=== PATIENT | male | born 1970 | race Hispanic/Latino ===

== ENCOUNTER 2023-04-30 02:39 | Inpatient (IN) | payer BC ==
[2023-04-30] VITALS (52 sets, daily range): BP systolic 76–156; BP diastolic 42–116; PULSE 47–97; RESP 7–70; O2SAT 97–100
[2023-04-30] MEDS ORDERED: PROPOFOL 1000 MG/100 ML 1,000 MG in PROPOFOL 1000 MG/100 ML 100 ML IV PRN (06:30)
[2023-04-30] MEDS ORDERED: LACTATED RINGERS 1000ML IV ONE (06:30)
[2023-04-30] MEDS ORDERED: ACETAMINOPHEN 650 MG SUPPOSITORY RC PRN (06:30)
[2023-04-30] MEDS ORDERED: HYDRALAZINE 20MG/ML VIAL IV PRN (06:30)
[2023-04-30] MEDS ORDERED: PROPOFOL 1000 MG/100 ML 100 ML IV PRN (06:30)
[2023-04-30] MEDS ORDERED: LABETALOL 20MG SYG IV PRN (06:30)
[2023-04-30] MEDS ORDERED: NOREPINEPHRIN 4MG/NS 250ML 250 ML IV SCH (06:30)
[2023-04-30 07:44] LABS: ABG BASE EXCESS -4.2 mmol/L (-2.0-3.0); ABG HCO3 21.3 mmol/L (21.0-28.0); ABG PCO2 40 mmHg (35-48); ABG PH 7.339 (7.35-7.450); PO2, ARTERIAL BG 114.4 mmHg (83.0-108.0)
[2023-04-30] MEDS: POLYETHYLENE GLYCOL 3350 17 GM POWD.PACK PO SCH (09:00)
[2023-04-30] MEDS: IPRATROPIUM/ALBUTEROL SULFATE 3 ML SOLUTION IH SCH ×4 (10:00→22:49)
[2023-04-30] MEDS: PANTOPRAZOLE 40 MG/VIAL IVP SCH (10:07)
[2023-04-30 10:44] LABS: HEMATOCRIT 30.3 % (42-54); MEAN CORPUSCULAR HGB CONC 31.4 g/dL (32.0-36.0); MEAN CORPUSCULAR VOLUME 92.4 fL (79-99); NUCLEATED RED BLOOD CELLS 0.4 % (0.0-0.19); PLATELET COUNT (AUTO) 99 K/uL (130-400); RED BLOOD CELL COUNT(AUTO) 3.28 MIL/uL (4.50-6.20); RED CELL DISTRIBUTION WIDTH 17.1 % (11.0-15.5); WHITE BLOOD COUNT (AUTO) 4.5 K/uL (4.8-10.8)
[2023-04-30 10:59] LABS: ALBUMIN 2.7 g/dL (3.5-5.0); BILIRUBIN,TOTAL 0.4 mg/dL (0.2-1.0); MAGNESIUM 1.9 mg/dL (1.80-2.40); PHOSPHORUS 5.7 mg/dL (2.5-4.9); POTASSIUM 5.1 mmol/L (3.5-5.1); TOTAL PROTEIN, SERUM 6.6 g/dL (6.0-8.3)
[2023-04-30 11:02] LABS: CREATININE 9.5 mg/dL (0.5-1.5)
[2023-04-30 11:15] LABS: APPEARANCE,URINE CLOUDY (CLEAR); BILIRUBIN,URINE NEGATIVE (NEGATIVE); COLOR,URINE LIGHT-YELLOW (YELLOW); GLUCOSE, URINE (UA) 150 mg/dL (NEGATIVE); KETONES,URINE NEGATIVE (NEGATIVE); LEUKOCYTE ESTERASE ,URINE NEGATIVE Leu/uL (NEGATIVE); NITRATE,URINE NEGATIVE (NEGATIVE); OCCULT BLOOD,URINE MODERATE (NEGATIVE); PROTEIN,URINE 300 mg/dL (NEGATIVE); UROBILINOGEN,URINE 0.2 mg/dL (0.2-1.0)
[2023-04-30 11:27] LABS: ADD UA MICROSCOPIC YES
[2023-04-30 11:35] LABS: RBC,URINE 26-50 /HPF (0-1); SQUAMOUS EPITHELIAL CELL,UR RARE /HPF (0-2)
[2023-04-30 11:42] LABS: AMPHET/METH SCREEN,URINE NEGATIVE (NEGATIVE); BARBITURATE SCREEN, URINE NEGATIVE (NEGATIVE); BENZODIAZEPINES SCREEN,URINE NEGATIVE (NEGATIVE); CANNABINOID SCREEN,URINE NEGATIVE (NEGATIVE); COCAINE SCREEN,URINE NEGATIVE (NEGATIVE); OPIATE SCREEN,URINE NEGATIVE (NEGATIVE); PHENCYCLIDINE SCREEN,URINE NEGATIVE (NEGATIVE)
[2023-04-30 11:59] LABS: LYMPHOCYTES % (MANUAL) 11 % (22-44); MAN.DIFF COMMENT-IMPRESSION MANUAL DIFFERENTIAL; MONOCYTES % (MANUAL) 4 % (2-9); PLATELET MORPHOLOGY COMMENT ADEQUATE; SEGMENTED NEUTROPHILS % 85 % (40-70); TOTAL CELLS COUNTED 100
[2023-04-30] MEDS ORDERED: ALPRAZOLAM 0.5 MG TABLET PO PRN (18:00)
[2023-04-30] MEDS: CEFTRIAXONE 2GM VIAL IVPB SCH (18:51)
[2023-04-30] MEDS: FAMOTIDINE 20MG TAB PO SCH (20:52)
[2023-04-30] MEDS ORDERED: GABAPENTIN 100 MG CAPSULE PO SCH (21:00)
[2023-05-01] VITALS (31 sets, daily range): BP systolic 99–143; BP diastolic 64–101; PULSE 75–91; RESP 14–36; O2SAT 94–100
[2023-05-01] MEDS: IPRATROPIUM/ALBUTEROL SULFATE 3 ML SOLUTION IH SCH ×2 (02:09→06:33)
[2023-05-01 03:57] LABS: BASOPHILS # (AUTO) 0.01 K/uL (0.00-0.20); BASOPHILS % (AUTO) 0.1 % (0.0-5.0); EOSINOPHILS # (AUTO) 0.03 K/uL (0.00-0.70); EOSINOPHILS % (AUTO) 0.4 % (0.0-8.0); HEMATOCRIT 25.3 % (42-54); IMMATURE GRANULOCYTE ABSOLUTE 0.02 K/uL (0-1); LYMPHOCYTES # (AUTO) 1.1 K/uL (1.0-4.8); LYMPHOCYTES % (AUTO) 14.7 % (21.0-51.0); MEAN CORPUSCULAR HEMOGLOBIN 28.7 pg (27.0-33.0); MEAN CORPUSCULAR VOLUME 89.7 fL (79-99); MONOCYTES # (AUTO) 0.5 K/uL (0.1-1.0); MONOCYTES % (AUTO) 7.2 % (3.0-13.0); NEUTROPHILS # (AUTO) 5.8 K/uL (1.8-7.7); NEUTROPHILS % (AUTO) 77.3 % (40.0-77.0); PLATELET COUNT (AUTO) 89 K/uL (130-400); RED BLOOD CELL COUNT(AUTO) 2.82 MIL/uL (4.50-6.20); RED CELL DISTRIBUTION WIDTH 17.1 % (11.0-15.5); WHITE BLOOD COUNT (AUTO) 7.5 K/uL (4.8-10.8)
[2023-05-01 04:14] LABS: MAGNESIUM 1.9 mg/dL (1.80-2.40); PHOSPHORUS 7.5 mg/dL (2.5-4.9); POTASSIUM 4.6 mmol/L (3.5-5.1)
[2023-05-01 04:23] LABS: B-TYPE NATRIURETIC PEPTIDE 1250 pg/mL (0-100)
[2023-05-01 04:28] LABS: CREATININE 11.6 mg/dL (0.5-1.5)
[2023-05-01] MEDS: POLYETHYLENE GLYCOL 3350 17 GM POWD.PACK PO SCH (08:53)
[2023-05-01] MEDS: PANTOPRAZOLE 40 MG/VIAL IVP SCH (08:53)
[2023-05-01] MEDS ORDERED: GABAPENTIN 100 MG CAPSULE PO SCH (09:00)
[2023-05-01] MEDS ORDERED: IPRATROPIUM/ALBUTEROL SULFATE 3 ML SOLUTION IH PRN (11:00)
[2023-05-01] MEDS: SEVELAMER HCL 800 MG TABLET PO SCH ×2 (12:11→16:47)
[2023-05-01] MEDS: GABAPENTIN 100 MG CAPSULE PO SCH ×2 (15:24→20:04)
[2023-05-01] MEDS: CEFTRIAXONE 2GM VIAL IVPB SCH (20:05)
[2023-05-01] MEDS ORDERED: DRON400T7 PO (20:24)
[2023-05-01] MEDS ORDERED: METO50TA18 PO (20:24)
[2023-05-01] MEDS ORDERED: PATI8.4P PO (20:24)
[2023-05-01] MEDS ORDERED: SEVE800T27 PO (20:24)
[2023-05-01] MEDS ORDERED: APIX5TAB PO (20:24)
[2023-05-02] VITALS (24 sets, daily range): BP systolic 111–156; BP diastolic 69–95; PULSE 61–134; RESP 16–22; TEMP 97.6–98; O2SAT 94–99
[2023-05-02] MEDS: ACETAMINOPHEN 325 MG TAB PO PRN ×2 (00:44→22:41)
[2023-05-02] MEDS: POLYETHYLENE GLYCOL 3350 17 GM POWD.PACK PO SCH (09:00)
[2023-05-02] MEDS: SEVELAMER HCL 800 MG TABLET PO SCH ×3 (09:17→18:29)
[2023-05-02] MEDS: GABAPENTIN 100 MG CAPSULE PO SCH ×3 (09:17→21:12)
[2023-05-02] MEDS: PANTOPRAZOLE 40 MG/VIAL IVP SCH (09:17)
[2023-05-02] MEDS ORDERED: LEVO-70 PO (17:14)
[2023-05-02] MEDS: CEFTRIAXONE 2GM VIAL IVPB SCH (18:29)
[2023-05-02] MEDS ORDERED: METOPROLOL TARTRATE 50 MG TAB PO ONE (18:30)
[2023-05-02] MEDS ORDERED: DRONEDARONE HYDROCHLORIDE 400 MG TABLET PO ONE (18:30)
[2023-05-02] MEDS ORDERED: CINA60TA4 PO (19:22)
[2023-05-02] MEDS: DRONEDARONE HYDROCHLORIDE 400 MG TABLET PO SCH (21:00)
[2023-05-02] MEDS: FAMOTIDINE 20MG TAB PO SCH (21:09)
[2023-05-02] MEDS: APIXABAN 5 MG TABLET PO SCH (21:10)
[2023-05-02] MEDS: METOPROLOL TARTRATE 50 MG TAB PO SCH (21:15)
[2023-05-03 04:04] VITALS: BP 100/62; PULSE 89; RESP 18
[2023-05-03 06:38] VITALS: PULSE 92; RESP 18; O2SAT 93
[2023-05-03 08:00] VITALS: O2SAT 97
[2023-05-03 08:13] VITALS: BP 134/92; PULSE 75; RESP 20
[2023-05-03] MEDS: SEVELAMER HCL 800 MG TABLET PO SCH ×2 (08:15→13:04)
[2023-05-03] MEDS: POLYETHYLENE GLYCOL 3350 17 GM POWD.PACK PO SCH (09:00)
[2023-05-03] MEDS: PANTOPRAZOLE 40 MG/VIAL IVP SCH (09:35)
[2023-05-03] MEDS: GABAPENTIN 100 MG CAPSULE PO SCH (09:35)
[2023-05-03] MEDS: METOPROLOL TARTRATE 50 MG TAB PO SCH (09:35)
[2023-05-03] MEDS: APIXABAN 5 MG TABLET PO SCH (09:36)
[2023-05-03] MEDS: DRONEDARONE HYDROCHLORIDE 400 MG TABLET PO SCH (09:42)
[2023-05-03 11:22] VITALS: BP 125/77; PULSE 79; RESP 17
[2023-05-03 19:39] VITALS: PULSE 69; RESP 20; O2SAT 96
[2023-05-03] MEDS ORDERED: AMOX-426 PO (20:52)
[2023-05-05 18:41] LABS: HEPATITIS B CORE AB TOTAL Non-Reactive (Nonreactive); HEPATITIS B SURFACE ANTIBODY Positive (Reactive); HEPATITIS B SURFACE ANTIGEN Non-Reactive (Nonreactive)
== END 2023-05-03 13:45 | disposition home or self-care (01) | DRG 208 ==
LOC: 2CH 05:37 → OBSVTOIN 05:37 → INTOOBSV 05:37 → 4CH 05-01 16:06
PROVIDERS: ADMIT Internal Medicine Critical Care Medicine; ATTEND Internal Medicine Critical Care Medicine
PROC: 5A1935Z Respiratory Ventilation, Less than 24 Consecutive Hours (ICD-10-PCS; 2023-04-30)
PROC: 0BH17EZ Insertion of Endotracheal Airway into Trachea, Via Natural or Artificial Opening (ICD-10-PCS; 2023-04-30)
PROC: 5A1935Z Respiratory Ventilation, Less than 24 Consecutive Hours (ICD-10-PCS; principal; 2023-05-01)
PROC: 5A1D70Z Performance of Urinary Filtration, Intermittent, Less than 6 Hours Per Day (ICD-10-PCS; 2023-05-02)
DX: J96.01 Acute respiratory failure with hypoxia (principal); N18.6 End stage renal disease; I46.9 Cardiac arrest, cause unspecified; J90 Pleural effusion, not elsewhere classified; C90.00 Multiple myeloma not having achieved remission; D61.818 Other pancytopenia; N30.00 Acute cystitis without hematuria; I48.20 Chronic atrial fibrillation, unspecified; Z99.2 Dependence on renal dialysis; B95.2 Enterococcus as the cause of diseases classified elsewhere; Z79.01 Long term (current) use of anticoagulants; Z90.49 Acquired absence of other specified parts of digestive tract; Z92.21 Personal history of antineoplastic chemotherapy; Z89.022 Acquired absence of left finger(s); Z89.021 Acquired absence of right finger(s)
CPT/HCPCS: 36415; 36600; 70450; 71045; 80048; 80053; 80305; 81001; 82330; 82803; 83605; 83735; 83880; 84100; 84145; 84443; 84484; 85025; 86704; 86706; 86850; 86900; 86901; 87040; 87071; 87077; 87088; 87186; 87205; 87340; 90935; 93005; 93306; 94002; 94150; 94640; 94664; C9113; G0378; J0696; J2704; J3490